=== PATIENT | female | born 1970 | race Two or more races ===

== ENCOUNTER 2024-08-26 06:00 | Day surgery (SDC) | payer BC, SELFPAY ==
--- NOTE | 2024-08-21 06:18 | EKG_ITS ---
[facility] Test Date: 2024-08-21 Pat Name: ANA ARREOLA Department: Room: - Gender: Female [employer]er: RASHAWN : 1970 Requested By: Yamileth Calabrese Order Number: [id number] Reading MD: Yamileth Calabrese Measurements Intervals [place] Rate: 90 P: 11 [place]: 160 QRS: -35 QRSD: 96 T: 143 QT: 373 QTc: 457 Interpretive Statements SINUS RHYTHM POSSIBLE LEFT ATRIAL ENLARGEMENT [-0.1mV P WAVE IN V1/V2] MARKED LEFT AXIS DEVIATION [QRS AXIS < -30] LEFT VENTRICULAR HYPERTROPHY AND ST-T CHANGE [VOLTAGE CRITERIA PLUS ST/T ABNORMALITY] Compared to ECG 06/21/2022 11:53:29 ST (T wave) deviation now present T-wave abnormality no longer present /store/S0/[id number]/[id number].pdf
[2024-08-21 10:56] VITALS: BMI 26.6
[2024-08-21 12:31] LABS: Basophils % (Auto) 1 % (0-2.5); Eosinophils # (Auto) 0.1 Thou/mm3 (0.0-0.5); Eosinophils % (Auto) 1 % (0-10); Hemoglobin 10.4 g/dL (12.0-16.0); Immature Granulocytes % (Auto) 1 % (0-0); Immature Granulocytes Auto 0.04 Thou/mm3 (0.00-0.00); Lymphocytes # (Auto) 1.3 Thou/mm3 (1.0-4.8); Lymphocytes % (Auto) 17 % (10-50); Mean Corpuscular HGB Conc 31.5 g/dl (31.0-37.0); Mean Corpuscular Hemoglobin 29.5 pg (25.0-35.0); Mean Corpuscular Volume 94 fL (80-100); Monocytes # (Auto) 0.5 Thou/mm3 (0.0-0.8); Monocytes % (Auto) 6 % (0-12); Neutrophils # (Auto) 5.5 Thou/mm3 (1.8-7.7); Neutrophils % (Auto) 75 % (37-80); Nucleated Red Blood Cell % 0 /100 WBC (0); Platelet Count 309 Thou/mm3 (140-440); RDW Standard Deviation 61.6 fL (36.4-46.3); Red Blood Count 3.53 Miln/mm3 (4.00-5.20); White Blood Count 7.4 Thou/mm3 (3.6-11.0)
[2024-08-21 12:52] LABS: Alanine Aminotransferase 19 U/L (10-49); Albumin, Serum 4.3 gm/dL (3.5-5.0); Albumin/Globulin Ratio 1.5 (1.2-2.2); Alkaline Phosphatase 80 U/L (46-116); Anion Gap 13 (7-16); Aspartate Amino Transferase 18 U/L (0-34); BUN/Creatinine Ratio 5 Ratio (12-20); Bilirubin,Total 0.5 mg/dL (0.3-1.2); Blood Urea Nitrogen 29 mg/dL (9-23); Calcium 9.9 mg/dL (8.3-10.6); Calcium (Corrected) 9.9 mg/dL (8.5-10.1); Carbon Dioxide 29.7 mMol/L (20.0-31.0); Chloride 94 mMol/L (98-107); Creatinine (Component) 5.8 mg/dL (0.6-1.3); Estimated Creatinine Clearance 10.3 mL/min (>60); Globulin 2.9 gm/dL (2.3-3.5); Glucose 272 mg/dL (74-106); Osmolality,Calculated 289 (275-295); Potassium 4.8 mMol/L (3.4-5.1); Sodium 137 mMol/L (136-145); Total Protein 7.2 gm/dL (5.7-8.2); eGFR 8 See Note
--- NOTE | 2024-08-22 14:07 | SUR.PREOP ---
Cardiac history and records reviewed with Dr Leon.
--- NOTE | 2024-08-25 14:52 | SUR.PREOP ---
Voicemail message left for pt to come in tomorrow at 0600.
[2024-08-26] VITALS (8 sets, daily range): BP systolic 89–150; BP diastolic 47–92; PULSE 55–73; RESP 13–20; TEMP 36.1–37.1; O2SAT 92–98; BMI 26.6
[2024-08-26] MEDS: SODIUM CHLORIDE 0.9% 500 ML 500 ML 20 ML IV (07:01)
--- NOTE | 2024-08-26 09:03 | SUR.PHASEI ---
0903: Pt. arrived with oral airway in place, vitals stable, breathing unlabored, no signs of distress, dressing to ABD CDI, no active bleed noted, report received from MD Chu and Tahir MCKENZIE.
--- NOTE | 2024-08-26 09:09 | PD.SUROPNT ---
Date of Procedure 08/26/24 Pre Op Diagnosis Mechanical complication of peritoneal dialysis catheter Post Op Diagnosis Mechanical complication of peritoneal dialysis catheter Procedure Removal of intraperitoneal dialysis catheter Findings No external evidence of infection Procedure Description Patient brought into the operating room in supine position. After administration of general endotracheal anesthesia, patient's abdomen prepped and draped in standard surgical manner. The area over the previous insertion site of his peritoneal dialysis catheter was anesthetized with half percent Marcaine. Dissection was carried subcutaneous tissue. The catheter was identified and followed up 20 abdominal fascia. The proximal cuff of the catheter was just posterior to anterior abdominal fascia. The cuff was circumferentially dissected off surrounding tissue. The distal cuff was in subcutaneous tissue and it was similarly dissected off surrounding tissue. The catheter was then removed from abdominal cavity. The anterior abdominal fascial opening was closed with a pursestring suture using 0 Prolene. The wound was washed with Betadine and warm saline. Subcutaneous tissue closed with interrupted suture using 2-0 Vicryl and the incision was closed 4-0 Monocryl subcuticular fashion. Instruments, needles and sponge counts were reported to be correct ?2. Patient tolerated the procedure well. She was extubated, was breathing spontaneously and without difficulty and was transferred to postanesthesia care in stable condition. Anesthesia GETA and local Pathology / specimen Other (Peritoneal dialysis catheter) Estimated Blood Loss 2 Condition Stable Disposition PACU Surgeon Yamileth Calabrese MD Surgical Staff Operation Date: 08/26/24 08:00 Case Staff Anesthesiologist: Negro Antunez RN First Assistant: Briana Madrigal
--- NOTE | 2024-08-26 10:12 | SUR.PHASEII ---
1012: Pt. AAOx4, vitals stable, breathing unlabored, no complaint of pain or nausea, dressing to ABD CDI, no active bleed noted, pt. tolerated sips of water well, pt. ambulated to wheelchair with steady gait and no assist, no complications. Gave discharge instructions to the pt. and her ride, both verbalized understanding and had no further questions. Pt. left with all personal belongings.
== END 2024-08-26 10:12 | disposition home or self-care (01) ==
PROVIDERS: Anesthesiology; Referring Provider Surgery; Visit Provider Surgery
PROC: (CPT 43887; principal; 2024-08-26 08:00)
DX: T85.691A Other mechanical complication of intraperitoneal dialysis catheter, initial encounter (principal); Z01.810 Encounter for preprocedural cardiovascular examination
CPT/HCPCS: 49422; 36415; 80053; 84132; 85025; 93005; A4217; A4649; J0690; J1100; J2250; J2405; J2704; J3010; J3490; J7040